=== PATIENT | male | born 1990 | race African-American/Black ===

== ENCOUNTER 2023-11-20 12:44 | Emergency (ER) | payer SELFPAY ==
[~2023-11-20] VITALS: Ht 180.3 cm; Wt 74.9 kg
[2023-11-20 13:41] LABS: Urine Bacteria None Seen /hpf (None Seen); Urine WBC None Seen /hpf (0 - 3)
[2023-11-20 14:14] LABS: Urine Blood Negative /uL (Negative); Urine Clarity Clear (Clear); Urine Color Light-Yellow (Yellow); Urine Protein, UAD TRACE (Negative); Urine Specific Gravity 1.031 (1.001-1.035); Urine Urobilinogen Normal (Negative); Urine pH 6.5 (5.0-9.0)
[2023-11-20] MEDS ORDERED: DOXY-286 PO (14:30)
[2023-11-20 14:34] VITALS: BP 128/78; PULSE 90; RESP 20; TEMP 99.8; O2SAT 98
[2023-11-20] MEDS: cefTRIAXone SOD 1,000 MG VL IM ONE (14:55)
[2023-11-21 13:07] LABS: Chlamydia Trachomatis, NAA Negative (Negative); Neisseria gonorrhoeae, NAA Negative (Negative)
== END 2023-11-20 14:56 | disposition home or self-care (01) ==
LOC: ER 12:44
DX: N34.2 Other urethritis (principal); Z79.899 Other long term (current) drug therapy
CPT/HCPCS: 81001; 87491; 87591; 96372; 99283; J0696